=== PATIENT | female | born 1930 | race Caucasian/White ===

== ENCOUNTER 2018-05-25 01:44 | Observation (INO) ==
[2018-05-25 02:31] LABS: Basophils # 0.1 K/mm3 (0-0.2); Basophils % 0.7 % (0.1-2.0); Eosinophils # 0.2 K/mm3 (0.0-0.4); Eosinophils % 2.2 % (0.1-12.0); Hematocrit 30.4 % (37.0-47.0); Hemoglobin 8.8 g/dL (12.2-16.2); Lymphocytes # 2.2 K/mm3 (0.7-4.5); Lymphocytes % 31.5 K/mm3 (10-50); Mean Corpuscular HGB Conc 28.9 g/dL (31.8-35.4); Mean Corpuscular Hemoglobin 19.7 pg (27.0-31.2); Mean Corpuscular Volume 68.1 fl (81-99); Mean Platelet Volume 6.8 fl (7.4-10.4); Monocytes # 0.6 K/mm3 (0.1-1.0); Monocytes % 8.7 % (1.7-9.3); Neutrophils # 3.9 K/mm3 (1.8-7.8); Neutrophils % 56.8 % (37.0-80.0); Platelet Count 322 K/mm3 (142-424); Red Blood Count 4.46 M/mm3 (4.20-5.40); Red Cell Distribution Width 17.7 % (11.5-17.5); White Blood Count 6.9 K/mm3 (4.8-10.8)
[2018-05-25 02:58] LABS: Alanine Aminotransferase 16 U/L (12-78); Albumin Level 3.1 gm/dL (3.4-5.0); Albumin/Globulin Ratio 0.9 (1.1-1.8); Alkaline Phosphatase 97 U/L (46-116); Anion Gap 9.9 mEq/L (5-15); Aspartate Amino Transferase 10 U/L (15-37); Bilirubin,Total 0.2 mg/dL (0.2-1.0); Blood Urea Nitrogen 26 mg/dL (7-18); Calcium 9.1 mg/dL (8.5-10.1); Carbon Dioxide 31 mmol/L (21.0-32.0); Chloride 105 mmol/L (98-107); Creatine Kinase 38 U/L (26-192); Globulin 3.6 gm/dl (1.3-3.2); Glucose 114 mg/dL (74-106); Potassium 2.9 mmoL/L (3.5-5.1); Sodium 143 mmol/L (136-145); Total Protein,Serum 6.7 gm/dL (6.4-8.2)
--- NOTE | 2018-05-25 03:58 | Emergency Department Note ---
ED Disposition Clinical Impression: Hypokalemia Chest pain Qualifiers: Chest pain type: precordial pain Qualified Code(s): R07.2 - Precordial pain Anemia Qualifiers: Anemia type: unspecified type Qualified Code(s): D64.9 - Anemia, unspecified Disposition: Admitted as Observation Condition on Discharge: Good Referrals: Brandan Mayorga MD [Primary Care Provider] - - Critical Care Critical Care Time: No Attestation: On 05/25/18, the high probability of a clinically significant, sudden or life threatening deterioration of the following system(s) required my full and direct attention, intervention and personal management. The time I documented below is in addition to time spent performing reported procedures but includes the following listed in this critical care notation. Medical Decision Making - Medical Records Medical records reviewed: Yes: I reviewed the patient's medical records. - Armando Inquiry Pt receiving controlled substance: No Vital Signs: 05/25/18 01:45 Temperature 97.8 F Temperature Source Oral Pulse Rate [Right Radial] 74 Respiratory Rate 20 Blood Pressure [Right Arm] 167/74 Blood Pressure Mean [Right Arm] 105 02 Sat by Pulse Oximetry 96 - Lab Data Lab results reviewed: Yes: I reviewed the patient's lab results. Lab Results 05/25/18 01:55: WBC 6.9, RBC 4.46, Hgb 8.8 L, Hct 30.4 L, MCV 68.1 L, MCH 19.7 L , MCHC 28.9 L, RDW 17.7 H, Plt Count 322, MPV 6.8 L, Neut % (Auto) 56.8, Lymph % (Auto) 31.5, [place] % (Auto) 8.7, Eos % (Auto) 2.2, Baso % (Auto) 0.7, Neut # ( Auto) 3.9, Lymph # (Auto) 2.2, [place] # (Auto) 0.6, Eos # (Auto) 0.2, Baso # (Auto ) 0.1 05/25/18 01:55: Sodium 143, Potassium 2.9 L*, Chloride 105, Carbon Dioxide 31, Anion Gap 9.9, BUN 26 H, Creatinine 0.67, Estimated Creat Clear 29, Estimated GFR 83, Est GFR ( Amer) 101, Glucose 114 H, Calcium 9.1, Total Bilirubin 0.2, AST 10 L, ALT 16, Alkaline Phosphatase 97, Total Creatine Kinase 38, CK-MB (CK-2) 0.9, CK-MB (CK-2) Rel Index 2.4, Troponin I < 0.02, Total Protein 6.7, Albumin 3.1 L, Globulin 3.6 H, Albumin/Globulin Ratio 0.9 L 05/25/18 01:55: Lactate 1.3 Result diagrams: 05/25/18 01:55 05/25/18 01:55 Orders (Tests/Meds): ORDERS Category Date Time Status XR chest 2V Stat Exams 05/25/18 01:49 Taken Blood Culture Stat Micro 05/25/18 01:51 Received - Radiology Data #1 Image(s): Chest Image Reviewed: Yes I reviewed the patient's radiology image Preliminary Findings: Abnormal (copd) - ECG Data Tracing #1 Normal Sinus Rhythm: Yes Ischemic changes: non-specific ST-T wave changes - Physician Consults Physician Consulted: sound Reason -: Admission Chest Pain HPI - General Chief Complaint: Chest Pain Stated Complaint: chest pain Time Seen by Provider: 05/25/18 02:00 Mode of Arrival: Family Vehicle Source of Information: Patient, Spouse, Medical Record Limitations: No Limitations Description of Symptoms (Recalled from ER Triage Doc. by RN): pt states that while playing on her cell phone she started having sudden sharp chest pains that radiate across her chest. pt states she has been coughing up sputum due to some sinus drainage she has had lately. - History of Present Illness HPI narrative: pt with acute onset at 0100 of ant chest tightness with no syncope - no prev episodes and she has no fever or rash and no trauma MD complaint: chest pain indicative of cardiac Onset (ago): hour(s) Duration: now resolved Activity at onset: during rest Pain location: left chest Severity: moderate Pain radiation: none Associated symptoms: nausea Risk Factors for CAD: Family Hx of CAD, Smoking Treatments prior to or on arrival for Cardiac Chest Pain: aspirin - DANNIE Score Non-Stemi Age of patient: 65 yrs or more Number of risk factors for CAD: Presence of 3 or more Prior coronary artery stenosis(seen in coronary angiography): Less than 50% ST-Segment deviation on ECG (more than 1 min): Absent Prior aspirin intake: No ASA in the last 7 days Severe anginal chest pain: No or one episode in last 24 hours Elevated cardiac markers(CK-MB or troponin): Absent Non-Stemi Risk Score: 2 - Related Data On Oral Contraceptives: No Home Medications Medication Instructions Recorded Confirmed cholecalciferol (vitamin D3) 1,000 1,000 unit PO ONCE 02/04/18 05/25/18 unit capsule lisinopril 10 mg tablet 10 mg PO DAILY 90 Days #90 02/04/18 05/25/18 lisinopril 20 1 tab PO DAILY 90 Days #90 02/04/18 05/25/18 mg-hydrochlorothiazide 12.5 mg tablet pravastatin 40 mg tablet 40 mg PO HS 90 Days #90 02/04/18 05/25/18 vitamins A,C,F-zefj-ayxcwv 14,320 1 cap PO DAILY 03/02/18 05/25/18 unit-226 mg-200 unit capsule Alendronate Sodium 70 mg PO WEEKLY 03/23/18 05/25/18 Aspirin [Aspirin 325mg Tab] 325 mg PO DAILY 03/23/18 05/25/18 ondansetron 4 mg disintegrating 4 mg PO TID PRN 03/26/18 05/25/18 tablet Gabapentin [Gabapentin 300mg Cap] 300 mg PO BID 05/25/18 05/25/18 Allergies Allergy/AdvReac Type Severity Reaction Status Date / Time Penicillins Allergy Intermediate I-RASH Verified 05/25/18 01:48 [facility] History I have reviewed the patient's past medical history: Yes Medical History: Reports:: Cancer (SKIN CANCER), Chronic Obstructive Pulmonary Disease (COPD), Hypertension, Peripheral Artery Disease Denies:: Asthma, Diabetes Mellitus Type 1, Diabetes Mellitus Type 2, MRSA Other Surgeries: Yes: Cancer Surgery, Hysterectomy-Total Amputation: No Fractures: No - Social History Smoking Status: Current every day smoker Tobacco Type: cigarettes # Packs/Day (cigarettes): 1 Alcohol Intake: never Alcohol Intake Frequency:: other Substance Use Type: denies use - Psychiatric History Expresses thoughts of harming self/others: None Suicide Plan Description: No Plan Family Hx:: Cancer, Hypertension ROS Obtained: Yes All systems reviewed & no additional complaints - Constitutional Constitutional: Denies fever(s) - Eyes Eyes: Denies change in vision - ENT Ears, Nose, Mouth, and Throat: Denies sore throat - Cardiovascular Cardiovascular: Reports chest pain - Respiratory Respiratory: Yes dyspnea - Gastrointestinal Gastrointestingal: Reports: abdominal pain - Genitourinary Female Genitourinary: Denies hematuria - Musculoskeletal Musculoskeletal: Reports joint pain, Denies joint swelling - Integumentary/Breasts Skin/Breast: Denies rash - Neurologic Neurologic: Denies seizure-like activity Physical Exam - General General appearance: alert - Head Head exam: normocephalic - Eye Eye exam: Present: PERRL, EOMI - ENT ENT exam: Present: mucous membranes dry - Neck Neck exam: Present: trachea midline - Respiratory Respiratory exam: Absent: respiratory distress - Cardiovascular Cardiovascular exam: Present: regular rate, systolic murmur, +S4 - Abdominal Exam Abdominal exam: Present: soft - Extremities Exam Extremities exam: Present: pedal edema. Absent: calf tenderness - Neurological Exam Neurological exam: Present: alert, oriented X3, CN II-XII intact - Psychiatric Psychiatric exam: Present: normal affect - Skin Skin exam: Absent: rash
[2018-05-25 06:20] LABS: Chol/HDL Ratio 2.5 (1-3.5)
--- NOTE | 2018-05-25 07:20 | Pharmacy Consult Notes ---
[facility] Pharmacy VTE Monitoring - Patient Demographics Admission date: 05/24/18 Report Date: 05/25/18 Time: 07:20 Allergies/Adverse Reactions: Patient Allergies Penicillins Allergy (Intermediate, Verified 05/25/18 01:48) I-RASH Height: 1.65 m Weight: 43.687 kg Patient Problems: Current Active Problems Chest pain (Acute) Anemia (Acute) Hypokalemia (Acute) - VTE Risk Labs: VTE Related Lab Results Hgb 8.8 g/dL (12.2-16.2) L 05/25/18 01:55 Hct 30.4 % (37.0-47.0) L 05/25/18 01:55 Plt Count 322 K/mm3 (142-424) 05/25/18 01:55 BUN 26 mg/dL (7-18) H 05/25/18 01:55 Creatinine 0.67 mg/dL (0.55-1.02) 05/25/18 01:55 Estimated Creat Clear 29 mL/min (0-300) 05/25/18 01:55 Was VTE Risk Assessment Performed: Yes VTE Score: 4 VTE Risk Level: Low Risk - Prophylaxis VTE Prophylaxis Ordered?: Yes Types of VTE Prophylaxis: TEDS Knee High Location of Applied Device: Bilateral Lower Extremeties - VTE Diagnosis Confirmed Treatment or plan recommended: Continue Current Treatment
--- NOTE | 2018-05-25 08:23 | Consult Report ---
History of Present Illness Consult date: 05/25/18 Requesting physician: Brandan Mayorga Consult reason: chest pain Chief complaint: chest pain Additional Medical History:: 1. Tobacco use, started age 22 A. COPD 2. Hypertension 3. History of hepatitis 4. Recent left humeral fracture after fall 5. Hyperlipidemia 6. Peripheral arterial disease with abnormal MOLLY, 02/2018 A. MOLLY, 02/2018, FINDINGS Rest study only performed today No prior studies available for comparison. Blood pressures reported are in millimeters mercury. RIGHT LEG MOLLY = .7. RIGHT LEG TBI=.4 Brachial BP: 110 Thigh BP: 123 Calf BP: 125 Ankle PT: 81 Ankle DP : 113 Digit =42 LEFT LEG MOLLY = 1.0 LEFT LEG TBI= .5 Brachial BPD: 111 Thigh BP: 124 Calf BP: 108 Ankle PT:111 Ankle DP: 115 Digit = 59 Pulses and waveforms: Diminished pulses with normal waveforms IMPRESSION: 1. There is a low right MOLLY is 0.7 suggesting mild atherosclerotic disease. 2. There are low TBIs on both sides suggesting small vessel disease History of present illness: 88-year-old white female with history of hypertension, tobacco use and COPD presented to the emergency department for chest pain. Patient relates sitting in her recliner getting ready to go to sleep when she developed sudden anterior chest pain radiating from left to right with heaviness in the chest. Symptoms did not resolve quickly the patient did take an aspirin and called her son for help. She was transported to the emergency department for further evaluation. Symptoms had significantly improved by the time she got to the emergency department. In retrospect she does note some jaw discomfort with the chest pain. She was not given any additional antianginals in the ER for chest pain resolved and has not recurred. Patient was kept overnight for further evaluation. Troponins have returned normal overnight 2. EKG is sinus without acute ST segment changes. Patient recently was seen in our office for evaluation of abnormal ABIs with plan for lower extremity arteriogram. However in the interim the patient fell and broke her arm and plans admits bone for that. She actually was seeking a second opinion with Dr. Jeffery in [place] but had not made that appointment yet. Cardiology consulted for evaluation and recommendations. Patient does relate some recent difficulty in swallowing foods with the feeling that food will get home up in her chest. She would not have to vomit the food up. She has learned to position herself to make swallowing easier. 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), Chronic Obstructive Pulmonary Disease (COPD), Hypertension, Peripheral Artery Disease Denies:: Asthma, Diabetes Mellitus Type 1, Diabetes Mellitus Type 2, MRSA Other Surgeries: Yes: Cancer Surgery, Colonoscopy, EGD, Hysterectomy-Total, Skin Cancer Excision Amputation: No Fractures: No - *Social History Smoking Status: Current every day smoker Tobacco Type: cigarettes # Packs/Day (cigarettes): 1 #Yrs smoked (if former smoker): 60 Alcohol Intake: never Alcohol Intake Frequency:: other Substance Use Type: denies use Occupational Status: retired Housing: house Household Members: none - Psychiatric History Expresses thoughts of harming self/others: None Suicide Plan Description: No Plan *Family Hx:: Cancer, Hypertension Meds Home Medications Medication Instructions Recorded Confirmed Type cholecalciferol (vitamin D3) 1,000 1,000 unit PO DAILY 02/04/18 05/25/18 History unit capsule lisinopril 10 mg tablet 10 mg PO DAILY 90 Days #90 02/04/18 05/25/18 History lisinopril 20 1 tab PO DAILY 90 Days #90 02/04/18 05/25/18 History mg-hydrochlorothiazide 12.5 mg tablet pravastatin 40 mg tablet 40 mg PO HS 90 Days #90 02/04/18 05/25/18 History vitamins A,C,C-hlsd-ofpboh 14,320 1 cap PO DAILY 03/02/18 05/25/18 History unit-226 mg-200 unit capsule Alendronate Sodium 70 mg PO WEEKLY 03/23/18 05/25/18 History Aspirin [Aspirin 325mg Tab] 325 mg PO DAILY 03/23/18 05/25/18 History ondansetron 4 mg disintegrating 4 mg PO TID PRN 03/26/18 05/25/18 History tablet Allergies Allergy/AdvReac Type Severity Reaction Status Date / Time Penicillins Allergy Intermediate I-RASH Verified 05/25/18 01:48 Review of Systems - *Cardiovascular Reports chest pain, Reports shortness of breath with activity - *Respiratory Reports shortness of breath with activity - *Gastrointestinal Denies abdominal pain, Denies black, tarry stools, Denies nausea - *Genitourinary Denies difficulty urinating - *Musculoskeletal Reports joint pain - *Neurologic Denies seizure-like activity Exam Vital signs and Labs for Last 24 Hours: Temp Pulse Resp BP Pulse Ox 97.0 F L 66 20 151/56 100 05/25/18 07:51 05/25/18 07:51 05/25/18 07:51 05/25/18 07:51 05/25/18 07:51 Laboratory Results - last 24 hr 05/25/18 01:55: WBC 6.9, RBC 4.46, Hgb 8.8 L, Hct 30.4 L, MCV 68.1 L, MCH 19.7 L , MCHC 28.9 L, RDW 17.7 H, Plt Count 322, MPV 6.8 L, Neut % (Auto) 56.8, Lymph % (Auto) 31.5, [place] % (Auto) 8.7, Eos % (Auto) 2.2, Baso % (Auto) 0.7, Neut # ( Auto) 3.9, Lymph # (Auto) 2.2, [place] # (Auto) 0.6, Eos # (Auto) 0.2, Baso # (Auto ) 0.1 05/25/18 01:55: Sodium 143, Potassium 2.9 L*, Chloride 105, Carbon Dioxide 31, Anion Gap 9.9, BUN 26 H, Creatinine 0.67, Estimated Creat Clear 29, Estimated GFR 83, Est GFR ( Amer) 101, Glucose 114 H, Calcium 9.1, Total Bilirubin 0.2, AST 10 L, ALT 16, Alkaline Phosphatase 97, Total Creatine Kinase 38, CK-MB (CK-2) 0.9, CK-MB (CK-2) Rel Index 2.4, Troponin I < 0.02, Total Protein 6.7, Albumin 3.1 L, Globulin 3.6 H, Albumin/Globulin Ratio 0.9 L 05/25/18 01:55: Lactate 1.3 05/25/18 06:00: Troponin I < 0.02 05/25/18 06:00: Magnesium 1.7, Triglycerides 38, Cholesterol 158, LDL Cholesterol 88, VLDL Cholesterol 8, HDL Cholesterol 62, Cholesterol/HDL Ratio 2.5 I & O for Last 24 hours: Intake & Output 05/22/18 05/23/18 05/24/18 05/25/18 11:59 11:59 11:59 11:59 Intake Total 0 / 0 Output Total 200 / 200 Balance -200 / -200 Weight 96 lb 5 oz - *Routine Neck Exam Absent: JVD, carotid bruit - *Routine Respiratory Exam Present: decreased breath sounds, CTA bilaterally. Absent: rhonchi, wheezes - *Routine Cardiovascular Exam Present: RRR, murmur. Absent: gallop, rubs - *Routine Abdominal Exam Present: soft. Absent: tenderness - *Routine Extremities Exam Present: edema - *Routine Neurological Exam Present: alert, oriented X3, moving all extremities Assessment and Plan (1) Chest pain Current visit: Yes Status: Acute Qualifiers: Chest pain type: precordial pain Qualified Code(s): R07.2 - Precordial pain Category: Medical Code(s): R07.9 - Chest pain, unspecified (2) Anemia Current visit: Yes Status: Acute Qualifiers: Anemia type: unspecified type Qualified Code(s): D64.9 - Anemia, unspecified Category: Medical Code(s): D64.9 - Anemia, unspecified (3) Hypokalemia Current visit: Yes Status: Acute Category: Medical Code(s): E87.6 - Hypokalemia (4) Hypertension Current visit: Yes Status: Acute Category: Medical Code(s): I10 - Essential (primary) hypertension (5) COPD (chronic obstructive pulmonary disease) Current visit: Yes Status: Acute Category: Medical Code(s): J44.9 - Chronic obstructive pulmonary disease, unspecified (6) Tobacco use Current visit: Yes Status: Acute Category: Social Hx Code(s): Z72.0 - Tobacco use - Assessment and plan all Dx Assessment and Plan for all problems:: 1. Chest pain in a patient with cardiac risk factors including tobacco use, hypertension and hyperlipidemia with a DANNIE score of 2. With patient's marked microcytic anemia would recommend antianginal medications (bisoprolol) and Lexiscan Myoview to assess for myocardial ischemia. Patient denies any diarrhea or melena. Preliminary echocardiogram shows preserved left ventricular ejection fraction with at least moderate mitral regurgitation and severe TR. 2. Regarding microcytic anemia, will obtain iron and TIBC studies further workup and treatment per Dr. Mayorga. 3. Hypokalemia, supplementation in progress. 4. Further recommendations to follow pending above results.
--- NOTE | 2018-05-25 09:06 | History & Physical Report ---
*Admission Date: 05/24/18 <JaymeNichol 05/25/18 09:25> *Chief complaint: Chest pain <Nichol Delacruz 05/25/18 09:25> *History of present illness: Ms. Delarosa is an 88-year-old female with a history of hypertension and tobacco use disorder who presented to [facility] emergency room after experiencing anterior, sharp chest pain. Her breathing was as usual. She rates her chest pain at 10 out of 10. She denies any nausea. Chest pain started about 1 AM when she was playing a game on her telephone when she was unable to sleep. When pain did not resolve she called her son who brought her to the emergency room. She did take an aspirin at home. In the emergency room chest pain did improve. Cardiac workup was initiated and she was admitted for further evaluation and treatment with a cardiology consult. This a.m. patient is comfortable and denies shortness of breath. SHe did not sleep during the night due to activities. To note: Patient had a recent humeral fracture. Continues with rehab. He does continue to smoke 1 pack per day. Although patient notes that she has had a lot of stress recently due to her son getting over the past weekend. She has had some difficulty with swallowing with some discomfort as well. <Nichol Delacruz 05/26/18 10:07> [facility] History Medical History: Reports:: Cancer (basal cell removed from right ear lobe and nose), Chronic Obstructive Pulmonary Disease (COPD), Gastroesophageal Reflux Disease(GERD), Hypertension, Peripheral Artery Disease Denies:: Asthma, Diabetes Mellitus Type 1, Diabetes Mellitus Type 2, Gastrointestinal Bleed, MRSA <Nichol Delacruz 05/25/18 09:25> Comment: Tobacco use disorder; left humerus fracture <Nichol Delacruz 09:25> Other Surgeries: Yes: Cancer Surgery, Colonoscopy, EGD, Hysterectomy-Total, Skin Cancer Excision <Nichol Delacruz 05/25/18 09:25> Amputation: No <Nichol Delacruz 05/25/18 09:25> Fractures: No <Nichol Delacruz 05/25/18 09:25> Comment: Recent dental implants <Nichol Delacruz 05/25/18 09:25> - *Social History Smoking Status: Current every day smoker <Nichol Delacruz 05/25/18 09:25> Tobacco Type: cigarettes <Nichol Delacruz 05/25/18 09:25> # Packs/Day (cigarettes): 1 <JaymeNichol 05/25/18 09:25> #Yrs smoked (if former smoker): 60 <JaymeNichol 05/25/18 09:25> Alcohol Intake: never <JaymeNichol 05/25/18 09:25> Alcohol Intake Frequency:: other <JaymeNichol 05/25/18 09:25> Substance Use Type: denies use <JaymeNichol 05/25/18 09:25> Occupational Status: retired <JaymeNichol 05/25/18 09:25> Housing: house <JaymeNichol 05/25/18 09:25> Household Members: none <DelacruzNichol 05/25/18 09:25> - Psychiatric History Expresses thoughts of harming self/others: None <DelacruzNichol Heri 05/25/18 09: 25> Suicide Plan Description: No Plan <JaymeNichol 05/25/18 09:25> *Family Hx:: Cancer, Coronary Artery Disease, Hypertension <DelacruzNichol 09:25> Review of Systems - Constitutional Reports weight loss, Denies body ache(s), Denies lack of energy <Delacruz Nichol 05/25/18 09:25> - ENT Denies dizziness, Denies ear pain, Denies sore throat <Delacruz,Nichol 09:25> - *Cardiovascular Reports chest pain, Reports chest pain at rest, Reports shortness of breath, Reports foot swelling <DelacruzNichol 05/25/18 09:25> - *Respiratory Reports cough (Minimal and is nonproductive), Denies chest congestion <Delacruz ,Nichol 05/25/18 09:25> - *Gastrointestinal Reports constipation, Reports difficulty swallowing, Reports heartburn, Denies abdominal pain, Denies vomiting blood, Denies black, tarry stools, Denies nausea , Denies vomiting <JaymeNichol 05/25/18 09:25> - *Genitourinary Denies difficulty urinating <Nichol eDlacruz - 05/25/18 09:25> - *Musculoskeletal Reports back pain, Denies joint pain <Nichol Delacruz - 05/25/18 09:25> Comments: Recent fall resulting in fracture of her left humerus. She does not know why she fell. <Nichol Delacruz - 05/25/18 09:25> - *Neurologic Denies dizziness, Denies seizure-like activity <Nichol Delacruz - 05/25/18 09:25 > Meds Home Medications Medication Instructions Recorded Confirmed Type cholecalciferol (vitamin D3) 1,000 1,000 unit PO DAILY 02/04/18 05/25/18 History unit capsule lisinopril 10 mg tablet 10 mg PO DAILY 90 Days #90 02/04/18 05/25/18 History lisinopril 20 1 tab PO DAILY 90 Days #90 02/04/18 05/25/18 History mg-hydrochlorothiazide 12.5 mg tablet pravastatin 40 mg tablet 40 mg PO HS 90 Days #90 02/04/18 05/25/18 History vitamins A,C,P-ksgq-dlckok 14,320 1 cap PO DAILY 03/02/18 05/25/18 History unit-226 mg-200 unit capsule Alendronate Sodium 70 mg PO WEEKLY 03/23/18 05/25/18 History Aspirin [Aspirin 325mg Tab] 325 mg PO DAILY 03/23/18 05/25/18 History ondansetron 4 mg disintegrating 4 mg PO TID PRN 03/26/18 05/25/18 History tablet <Nichol Delacruz - 05/25/18 09:25> Allergies Allergy/AdvReac Type Severity Reaction Status Date / Time Penicillins Allergy Intermediate I-RASH Verified 05/25/18 01:48 <Nichol Delacruz - 05/25/18 09:25> Exam Vital signs and Labs for Last 24 Hours: Temp Pulse Resp BP Pulse Ox 97.7 F 47 L 20 106/44 95 05/25/18 11:32 05/25/18 11:32 05/25/18 11:32 05/25/18 11:32 05/25/18 11:32 Laboratory Results - last 24 hr 05/25/18 01:55: WBC 6.9, RBC 4.46, Hgb 8.8 L, Hct 30.4 L, MCV 68.1 L, MCH 19.7 L , MCHC 28.9 L, RDW 17.7 H, Plt Count 322, MPV 6.8 L, Neut % (Auto) 56.8, Lymph % (Auto) 31.5, [place] % (Auto) 8.7, Eos % (Auto) 2.2, Baso % (Auto) 0.7, Neut # ( Auto) 3.9, Lymph # (Auto) 2.2, [place] # (Auto) 0.6, Eos # (Auto) 0.2, Baso # (Auto ) 0.1 05/25/18 01:55: Sodium 143, Potassium 2.9 L*, Chloride 105, Carbon Dioxide 31, Anion Gap 9.9, BUN 26 H, Creatinine 0.67, Estimated Creat Clear 29, Estimated GFR 83, Est GFR ( Amer) 101, Glucose 114 H, Calcium 9.1, Total Bilirubin 0.2, AST 10 L, ALT 16, Alkaline Phosphatase 97, Total Creatine Kinase 38, CK-MB (CK-2) 0.9, CK-MB (CK-2) Rel Index 2.4, Troponin I < 0.02, Total Protein 6.7, Albumin 3.1 L, Globulin 3.6 H, Albumin/Globulin Ratio 0.9 L 05/25/18 01:55: Lactate 1.3 05/25/18 06:00: Troponin I < 0.02 05/25/18 06:00: Magnesium 1.7, Triglycerides 38, Cholesterol 158, LDL Cholesterol 88, VLDL Cholesterol 8, HDL Cholesterol 62, Cholesterol/HDL Ratio 2.5 05/25/18 08:08: Troponin I < 0.02 05/25/18 11:06: Troponin I < 0.02 <Brandan Mayorga - 05/25/18 15:36> Temp Pulse Resp BP Pulse Ox 97.0 F L 66 20 151/56 2 L 05/25/18 07:51 05/25/18 07:51 05/25/18 07:51 05/25/18 07:51 05/25/18 08:00 Laboratory Results - last 24 hr 05/25/18 01:55: WBC 6.9, RBC 4.46, Hgb 8.8 L, Hct 30.4 L, MCV 68.1 L, MCH 19.7 L , MCHC 28.9 L, RDW 17.7 H, Plt Count 322, MPV 6.8 L, Neut % (Auto) 56.8, Lymph % (Auto) 31.5, [place] % (Auto) 8.7, Eos % (Auto) 2.2, Baso % (Auto) 0.7, Neut # ( Auto) 3.9, Lymph # (Auto) 2.2, [place] # (Auto) 0.6, Eos # (Auto) 0.2, Baso # (Auto ) 0.1 05/25/18 01:55: Sodium 143, Potassium 2.9 L*, Chloride 105, Carbon Dioxide 31, Anion Gap 9.9, BUN 26 H, Creatinine 0.67, Estimated Creat Clear 29, Estimated GFR 83, Est GFR ( Amer) 101, Glucose 114 H, Calcium 9.1, Total Bilirubin 0.2, AST 10 L, ALT 16, Alkaline Phosphatase 97, Total Creatine Kinase 38, CK-MB (CK-2) 0.9, CK-MB (CK-2) Rel Index 2.4, Troponin I < 0.02, Total Protein 6.7, Albumin 3.1 L, Globulin 3.6 H, Albumin/Globulin Ratio 0.9 L 05/25/18 01:55: Lactate 1.3 05/25/18 06:00: Troponin I < 0.02 05/25/18 06:00: Magnesium 1.7, Triglycerides 38, Cholesterol 158, LDL Cholesterol 88, VLDL Cholesterol 8, HDL Cholesterol 62, Cholesterol/HDL Ratio 2.5 05/25/18 08:08: Troponin I < 0.02 <Nichol Delacruz - 05/25/18 09:25> I & O for Last 24 hours: Intake & Output 05/23/18 05/24/18 05/25/18 05/26/18 11:59 11:59 11:59 11:59 Intake Total 0 / 0 240 / 240 Output Total 200 / 200 Balance -200 / -200 240 / 240 Weight 101 lb 8 oz <Brandan Mayorga - 05/25/18 15:36> Intake & Output 05/22/18 05/23/18 05/24/18 05/25/18 11:59 11:59 11:59 11:59 Intake Total 0 / 0 Output Total 200 / 200 Balance -200 / -200 Weight 96 lb 5 oz <Nichol Delacruz 05/25/18 09:25> Radiology Reports for the Last 24 Hours: 05/25/2018 chest x-ray IMPRESSION: 1. COPD/emphysema with chronic fibrotic changes. 2. Comminuted mildly displaced left humeral neck fracture. 3. No acute finding. <Nichol Delacruz 05/25/18 09:25> - Constitutional no acute distress, thin <Nichol Delacruz 05/25/18 09:25> Comments: Appears comfortable sitting up in bed watching television. <[facility] 05/25/18 09:25> - *Routine HEENT Exam Head: Present: normocephalic, atraumatic <Debi Delacruzhy 05/25/18 09:25> Eye: Present: PERRL. Absent: conjunctival icterus, scleral injection <Nichol Delacruz 05/25/18 09:25> ENT: Present: mucous membranes moist, oropharynx clear <[facility] 09:25> - *Routine Neck Exam Present: supple. Absent: carotid bruit, lymphadenopathy, thyromegaly <Debi Delacruzhy 05/25/18 09:25> - *Routine Respiratory Exam Comments: Fibrotic crackles bilaterally posteriorly. Decreased breath sounds on the left <Debi Delacruzhy 05/25/18 09:25> - *Routine Cardiovascular Exam Present: RRR <Debi Delacruzhy 05/25/18 09:25> Comments: Monitor showing sinus rhythm <Debi Delacruzhy 05/25/18 09:25> - *Routine Abdominal Exam Present: soft, normoactive bowel sounds. Absent: tenderness, distended, guarding, firm <Debi Delacruzhy 05/25/18 09:25> - *Routine Extremities Exam Present: edema. Absent: calf tenderness <Nichol Delacruz 05/25/18 09:25> Comments: Edema of bilateral feet. <Debi Delacruzhy 05/25/18 09:25> - *Routine Skin Exam Present: dry [facility] 05/25/18 09:25> - *Routine Neurological Exam Present: alert, oriented X3 <Debi Delacruzhy 05/25/18 09:25> Assessment and Plan (1) Chest pain Current visit: Yes Status: Acute Qualifiers: Chest pain type: precordial pain Qualified Code(s): R07.2 - Precordial pain Category: Medical Code(s): R07.9 - Chest pain, unspecified (2) Anemia Current visit: Yes Status: Acute Qualifiers: Anemia type: unspecified type Qualified Code(s): D64.9 - Anemia, unspecified Category: Medical Code(s): D64.9 - Anemia, unspecified (3) Hypokalemia Current visit: Yes Status: Acute Category: Medical Code(s): E87.6 - Hypokalemia (4) Hypertension Current visit: Yes Status: Acute Category: Medical Code(s): I10 - Essential (primary) hypertension (5) COPD (chronic obstructive pulmonary disease) Current visit: Yes Status: Acute Category: Medical Code(s): J44.9 - Chronic obstructive pulmonary disease, unspecified (6) Tobacco use Current visit: Yes Status: Acute Category: Social Hx Code(s): Z72.0 - Tobacco use <TierraBrandan - 05/25/18 15:36> (1) Chest pain Current visit: Yes Status: Acute Qualifiers: Chest pain type: precordial pain Qualified Code(s): R07.2 - Precordial pain Category: Medical Code(s): R07.9 - Chest pain, unspecified (2) Anemia Current visit: Yes Status: Acute Qualifiers: Anemia type: unspecified type Qualified Code(s): D64.9 - Anemia, unspecified Category: Medical Code(s): D64.9 - Anemia, unspecified (3) Hypokalemia Current visit: Yes Status: Acute Category: Medical Code(s): E87.6 - Hypokalemia (4) Hypertension Current visit: Yes Status: Acute Category: Medical Code(s): I10 - Essential (primary) hypertension (5) COPD (chronic obstructive pulmonary disease) Current visit: Yes Status: Acute Category: Medical Code(s): J44.9 - Chronic obstructive pulmonary disease, unspecified (6) Tobacco use Current visit: Yes Status: Acute Category: Social Hx Code(s): Z72.0 - Tobacco use <Nichol Delacruz - 05/26/18 10:07> - Assessment and plan all Dx Assessment and Plan for all problems:: Saw patient, agree with above note. <Brandan Mayorga - 05/25/18 15:37> Nuclear stress test; upper GI; scheduled potassium. Patient has been seen by cardiology. Echocardiogram has been completed and results are pending <Nichol Delacruz - 05/25/18 09:25>
--- NOTE | 2018-05-25 19:56 | Cardiology Report ---
PROCEDURE: 2-D M-mode and color Doppler study INDICATIONS FOR THE TEST: Chest pain + COPD+ Heart Murmur Tobacco Smoking+ Palpitations Fatigue Syncope Edema Hypertension+Diabetes Mellitus Rheumatic Fever SOB [place] Obesity Hyperlipidemia Family History HD Additional History PAD PATIENT INFORMATION HEIGHT: 64 WEIGHT:102 GENDER: Female B/P:167/74 2-D/M-MODE INTERPRETATION: 2-D MEASUREMENTS OBSERVED VALUES IN CMS Right Ventricular Dimension (RVDd) 2.4 Interventricular Septum (Thickness)(IVsd) 1.6 Left Ventricular Internal Dimensions(LVIDd) 3.3 Left Ventricular Posterior Wall (Thickness)(LVPWd) 1.3 Aortic Root 3.2 Aortic Cusp Separation 1.8 Left Atrial Dimensions (LAD) 3.5 2D 1. Left atrium is mildly enlarged, left ventricle is normal size, mild concentric left ventricular hypertrophy, visually estimated ejection fraction 55% with no obvious regional wall motion abnormality. 2. The right atrium is mildly enlarged, right ventricle is normal size and contractility. 3. The aortic valve is thickened and calcified leaflet continue to display good mobility. 4. The mitral valve leaflets are minimally thickened, there is mitral annular calcification present, there appears to be mild prolapse of the posterior mitral leaflet. 5. The tricuspid valve is minimally thickened. 6. The pulmonic valve is poorly visualized. 7. There is trivial pericardial effusion noted. DOPPLER INTERROGATION: Doppler interrogation of the aortic, mitral and tricuspid valvular presence of mild aortic, moderate mitral and moderate tricuspid regurgitation, calculated right ventricular systolic pressure is 62 mmHg consistent with moderate pulmonary hypertension. Grade 1 diastolic dysfunction seen with tissue Doppler evidence of raised left atrial pressure. CONCLUSION: 1. Mildly enlarged left atrium, normal left ventricular size, mild concentric left ventricular hypertrophy, visually estimated ejection fraction 55% with no obvious regional wall motion abnormality, grade 1 diastolic dysfunction seen with tissue Doppler evidence of raised left atrial pressure. 2. Mildly aortic, moderate mitral and tricuspid regurgitation, as described above. Calculated right ventricular systolic pressure is 62 mmHg consistent with moderate pulmonary hypertension. 3. No significant Pericardial effusion noted.
[2018-05-25 20:39] LABS: Creatine Kinase 44 U/L (26-192)
[2018-05-26 06:26] LABS: Basophils % 0.8 % (0.1-2.0); Eosinophils # 0.1 K/mm3 (0.0-0.4); Eosinophils % 1.7 % (0.1-12.0); Hematocrit 28.9 % (37.0-47.0); Hemoglobin 8.3 g/dL (12.2-16.2); Lymphocytes # 1.3 K/mm3 (0.7-4.5); Lymphocytes % 25.2 K/mm3 (10-50); Mean Corpuscular HGB Conc 28.6 g/dL (31.8-35.4); Mean Platelet Volume 7.2 fl (7.4-10.4); Monocytes # 0.4 K/mm3 (0.1-1.0); Monocytes % 7.7 % (1.7-9.3); Neutrophils # 3.3 K/mm3 (1.8-7.8); Neutrophils % 64.6 % (37.0-80.0); Platelet Count 261 K/mm3 (142-424); Red Blood Count 4.13 M/mm3 (4.20-5.40); Red Cell Distribution Width 17.7 % (11.5-17.5); White Blood Count 5.2 K/mm3 (4.8-10.8)
[2018-05-26 06:29] LABS: Anion Gap 7.4 mEq/L (5-15); Calcium 8.4 mg/dL (8.5-10.1); Potassium 4.4 mmoL/L (3.5-5.1)
--- NOTE | 2018-05-26 08:04 | Progress Note ---
Subjective Date: 05/26/18 Time: 08:00 Principal diagnosis: chest pain Interval history: 88 yo WF in bed in [facility]. Episode of chest pain last evening for which EKG and cardiac enzymes performed. EKG showed no acute changes compared with previous and cardiac enzymes returned normal. She was given Morphine with eventual relief. Telemetry reviewed with episodes of marked bradycardia noted but patient was either asleep or asymptomatic. UGI swallow was unremarkable. Exam Vital signs and Labs for Last 24 Hours: Temp Pulse Resp BP Pulse Ox 98.0 F 52 L 20 154/77 100 05/26/18 07:49 05/26/18 07:49 05/26/18 07:49 05/26/18 07:49 05/26/18 07:49 Laboratory Results - last 24 hr 05/25/18 08:08: Troponin I < 0.02 05/25/18 11:06: Troponin I < 0.02 05/25/18 19:55: Total Creatine Kinase 44, CK-MB (CK-2) 1.0, CK-MB (CK-2) Rel Index 2.3, Troponin I < 0.02 05/26/18 05:31: WBC 5.2, RBC 4.13 L, Hgb 8.3 L, Hct 28.9 L, MCV 70.0 L, MCH 20.0 L, MCHC 28.6 L, RDW 17.7 H, Plt Count 261, MPV 7.2 L, Neut % (Auto) 64.6, Lymph % (Auto) 25.2, [place] % (Auto) 7.7, Eos % (Auto) 1.7, Baso % (Auto) 0.8, Neut # (Auto) 3.3, Lymph # (Auto) 1.3, [place] # (Auto) 0.4, Eos # (Auto) 0.1, Baso # (Auto) 0.0 05/26/18 05:31: Sodium 142, Potassium 4.4 D, Chloride 110 H, Carbon Dioxide 29 , Anion Gap 7.4, BUN 21 H, Creatinine 0.62, Estimated Creat Clear 29, Estimated GFR 91, Est GFR ( Amer) 110, Glucose 95, Calcium 8.4 L I & O for Last 24 hours: Intake & Output 08/19/18 08/20/18 08/21/18 08/22/18 11:59 11:59 11:59 11:59 Intake Total 0 / 0 1104 / 1104 Output Total 200 / 200 300 / 300 Balance -200 / -200 804 / 804 Weight 101 lb 8 oz 101 lb 1 oz - *Routine Respiratory Exam Present: CTA bilaterally - *Routine Cardiovascular Exam Present: RRR, murmur Progress Note: A&P (1) Chest pain Status: Acute Current Visit: Yes (2) Anemia Status: Acute Current Visit: Yes (3) Hypokalemia Status: Acute Current Visit: Yes (4) Hypertension Status: Acute Current Visit: Yes (5) COPD (chronic obstructive pulmonary disease) Status: Acute Current Visit: Yes (6) Tobacco use Status: Acute Current Visit: Yes Assessment and Plan for All Diagnoses:: Carlos myoview today. Stop bisoprolol due to bradycardia and risk for fall. Use norvasc for chest pain, BP and possible antispasm treatment of esophagus. Anemia workup ongoing.
--- NOTE | 2018-05-26 08:23 | Progress Note ---
<Nichol Delacruz - Last Filed: 05/26/18 08:19> Internal Medicine - PN: Subj *Date: 05/26/18 *Time: 08:19 Interval history: Patient is feeling good at present. She did have chest pain yesterday evening lasting 7-8 minutes. She describes it as sharp across the entire chest similar to what she had at home on admission. Pain was relieved by morphine she has had no further chest pain. There was no associated shortness of breath or nausea. She is eating as usual and voiding without difficulty Exam Vital signs and Labs for Last 24 Hours: Temp Pulse Resp BP Pulse Ox 98.0 F 52 L 20 154/77 100 05/26/18 07:49 05/26/18 07:49 05/26/18 07:49 05/26/18 07:49 05/26/18 07:49 Laboratory Results - last 24 hr 05/25/18 08:08: Troponin I < 0.02 05/25/18 11:06: Troponin I < 0.02 05/25/18 19:55: Total Creatine Kinase 44, CK-MB (CK-2) 1.0, CK-MB (CK-2) Rel Index 2.3, Troponin I < 0.02 05/26/18 05:31: WBC 5.2, RBC 4.13 L, Hgb 8.3 L, Hct 28.9 L, MCV 70.0 L, MCH 20.0 L, MCHC 28.6 L, RDW 17.7 H, Plt Count 261, MPV 7.2 L, Neut % (Auto) 64.6, Lymph % (Auto) 25.2, [place] % (Auto) 7.7, Eos % (Auto) 1.7, Baso % (Auto) 0.8, Neut # (Auto) 3.3, Lymph # (Auto) 1.3, [place] # (Auto) 0.4, Eos # (Auto) 0.1, Baso # (Auto) 0.0 05/26/18 05:31: Sodium 142, Potassium 4.4 D, Chloride 110 H, Carbon Dioxide 29 , Anion Gap 7.4, BUN 21 H, Creatinine 0.62, Estimated Creat Clear 29, Estimated GFR 91, Est GFR ( Amer) 110, Glucose 95, Calcium 8.4 L I & O for Last 24 hours: Intake & Output 05/23/18 05/24/18 05/25/18 05/26/18 11:59 11:59 11:59 11:59 Intake Total 0 / 0 1104 / 1104 Output Total 200 / 200 300 / 300 Balance -200 / -200 804 / 804 Weight 101 lb 8 oz 101 lb 1 oz - Constitutional no acute distress Comments: Sitting up in bed working with her phone. Appears comfortable - *Routine Respiratory Exam Comments: Diminished breath sounds in the left lower lobe - *Routine Cardiovascular Exam Present: RRR Comments: Monitor showing sinus bradycardia in the 50s - *Routine Abdominal Exam Present: soft, normoactive bowel sounds. Absent: tenderness, distended - *Routine Extremities Exam Present: edema Comments: Trace of foot edema bilaterally Assessment and Plan (1) Chest pain Current visit: Yes Status: Acute Qualifiers: Chest pain type: precordial pain Qualified Code(s): R07.2 - Precordial pain Category: Medical Code(s): R07.9 - Chest pain, unspecified (2) Anemia Current visit: Yes Status: Acute Qualifiers: Anemia type: unspecified type Qualified Code(s): D64.9 - Anemia, unspecified Category: Medical Code(s): D64.9 - Anemia, unspecified (3) Hypokalemia Current visit: Yes Status: Acute Category: Medical Code(s): E87.6 - Hypokalemia (4) Hypertension Current visit: Yes Status: Acute Category: Medical Code(s): I10 - Essential (primary) hypertension (5) COPD (chronic obstructive pulmonary disease) Current visit: Yes Status: Acute Category: Medical Code(s): J44.9 - Chronic obstructive pulmonary disease, unspecified (6) Tobacco use Current visit: Yes Status: Acute Category: Social Hx Code(s): Z72.0 - Tobacco use - Assessment and plan all Dx Assessment and Plan for all problems:: Patient is to have a stress test today. She has been seen by cardiology and beta-brooke has been discontinued. Possibly home later today depending on stress test. Stability CTA of the chest. Anemia studies are pending. <Brandan Mayorga - Last Filed: 05/26/18 09:29> Internal Medicine - PN: Subj *Date: 05/26/18 *Time: 09:28 Exam Vital signs and Labs for Last 24 Hours: Temp Pulse Resp BP Pulse Ox 98.0 F 52 L 20 154/77 100 05/26/18 07:49 05/26/18 07:49 05/26/18 07:49 05/26/18 07:49 05/26/18 07:49 Laboratory Results - last 24 hr 05/25/18 11:06: Troponin I < 0.02 05/25/18 19:55: Total Creatine Kinase 44, CK-MB (CK-2) 1.0, CK-MB (CK-2) Rel Index 2.3, Troponin I < 0.02 05/26/18 05:31: WBC 5.2, RBC 4.13 L, Hgb 8.3 L, Hct 28.9 L, MCV 70.0 L, MCH 20.0 L, MCHC 28.6 L, RDW 17.7 H, Plt Count 261, MPV 7.2 L, Neut % (Auto) 64.6, Lymph % (Auto) 25.2, [place] % (Auto) 7.7, Eos % (Auto) 1.7, Baso % (Auto) 0.8, Neut # (Auto) 3.3, Lymph # (Auto) 1.3, [place] # (Auto) 0.4, Eos # (Auto) 0.1, Baso # (Auto) 0.0 05/26/18 05:31: Sodium 142, Potassium 4.4 D, Chloride 110 H, Carbon Dioxide 29 , Anion Gap 7.4, BUN 21 H, Creatinine 0.62, Estimated Creat Clear 29, Estimated GFR 91, Est GFR ( Amer) 110, Glucose 95, Calcium 8.4 L I & O for Last 24 hours: Intake & Output 05/23/18 05/24/18 05/25/18 05/26/18 11:59 11:59 11:59 11:59 Intake Total 0 / 0 1104 / 1104 Output Total 200 / 200 300 / 300 Balance -200 / -200 804 / 804 Weight 101 lb 8 oz 101 lb 1 oz Assessment and Plan (1) Chest pain Current visit: Yes Status: Acute Qualifiers: Chest pain type: precordial pain Qualified Code(s): R07.2 - Precordial pain Category: Medical Code(s): R07.9 - Chest pain, unspecified (2) Anemia Current visit: Yes Status: Acute Qualifiers: Anemia type: unspecified type Qualified Code(s): D64.9 - Anemia, unspecified Category: Medical Code(s): D64.9 - Anemia, unspecified (3) Hypokalemia Current visit: Yes Status: Acute Category: Medical Code(s): E87.6 - Hypokalemia (4) Hypertension Current visit: Yes Status: Acute Category: Medical Code(s): I10 - Essential (primary) hypertension (5) COPD (chronic obstructive pulmonary disease) Current visit: Yes Status: Acute Category: Medical Code(s): J44.9 - Chronic obstructive pulmonary disease, unspecified (6) Tobacco use Current visit: Yes Status: Acute Category: Social Hx Code(s): Z72.0 - Tobacco use - Assessment and plan all Dx Assessment and Plan for all problems:: Saw patient, agree with above note. She is anxious to be discharged home, continue evaluation of symptoms with cardiac stress test today, if normal will likely get CT of chest.
[2018-05-27 07:00] LABS: Anion Gap 10.7 mEq/L (5-15); Calcium 8.3 mg/dL (8.5-10.1); Potassium 4.7 mmoL/L (3.5-5.1)
[2018-05-27 07:19] LABS: Basophils # 0.1 K/mm3 (0-0.2); Eosinophils # 0.1 K/mm3 (0.0-0.4); Eosinophils % 1.8 % (0.1-12.0); Hematocrit 30.3 % (37.0-47.0); Hemoglobin 8.6 g/dL (12.2-16.2); Lymphocytes # 1.6 K/mm3 (0.7-4.5); Lymphocytes % 22.7 K/mm3 (10-50); Mean Corpuscular HGB Conc 28.5 g/dL (31.8-35.4); Mean Corpuscular Hemoglobin 19.6 pg (27.0-31.2); Mean Corpuscular Volume 68.8 fl (81-99); Mean Platelet Volume 7.3 fl (7.4-10.4); Monocytes # 0.5 K/mm3 (0.1-1.0); Monocytes % 6.4 % (1.7-9.3); Neutrophils # 4.9 K/mm3 (1.8-7.8); Neutrophils % 67.9 % (37.0-80.0); Platelet Count 274 K/mm3 (142-424); Red Cell Distribution Width 17.4 % (11.5-17.5); White Blood Count 7.2 K/mm3 (4.8-10.8)
--- NOTE | 2018-05-27 08:19 | Progress Note ---
<Patricia Cedeno - Last Filed: 05/27/18 08:15> Internal Medicine - PN: Subj *Date: 05/27/18 *Time: 08:15 Interval history: Patient states she is feeling well this morning. She is anxious to go home. She denies any pain. She slept well until approximately 3 AM. She ate most of her breakfast this morning. Exam Vital signs and Labs for Last 24 Hours: Temp Pulse Resp BP Pulse Ox 97.8 F 61 18 138/74 93 L 05/27/18 07:52 05/27/18 07:52 05/27/18 07:52 05/27/18 07:52 05/27/18 07:52 Laboratory Results - last 24 hr 05/25/18 08:08: Iron 15 L, TIBC 340, Iron Saturation 4 L, Unsaturated IBC 325 05/27/18 06:15: WBC 7.2 D, RBC 4.40, Hgb 8.6 L, Hct 30.3 L, MCV 68.8 L, MCH 19.6 L, MCHC 28.5 L, RDW 17.4, Plt Count 274, MPV 7.3 L, Neut % (Auto) 67.9, Lymph % (Auto) 22.7, [place] % (Auto) 6.4, Eos % (Auto) 1.8, Baso % (Auto) 1.0, Neut # (Auto) 4.9, Lymph # (Auto) 1.6, [place] # (Auto) 0.5, Eos # (Auto) 0.1, Baso # (Auto) 0.1 05/27/18 06:15: Sodium 138, Potassium 4.7, Chloride 107, Carbon Dioxide 25, Anion Gap 10.7, BUN 19 H, Creatinine 0.66, Estimated Creat Clear 29, Estimated GFR 85, Est GFR ( Amer) 103, Glucose 95, Calcium 8.3 L I & O for Last 24 hours: Intake & Output 05/24/18 05/25/18 05/26/18 05/27/18 11:59 11:59 11:59 11:59 Intake Total 0 / 0 1104 / 1104 2309 / 2309 Output Total 200 / 200 300 / 300 800 / 800 Balance -200 / -200 804 / 804 1509 / 1509 Weight 101 lb 8 oz 101 lb 1 oz 102 lb Microbiology Reports for the Last 24 Hours: Microbiology 05/25/18 01:51 Blood Blood Culture - Preliminary NO GROWTH AFTER 48 HOURS 05/25/18 01:51 Blood Blood Culture - Preliminary NO GROWTH AFTER 48 HOURS Radiology Reports for the Last 24 Hours: Stress test 1. Normal ejection fraction of 78 %. 2. Incomplete perfusion abnormalities of the anterior wall towards the septum and at the apex on the stress images which becomes more normal on the delayed images consistent with areas of ischemia - Constitutional no acute distress - *Routine Respiratory Exam Present: decreased breath sounds, CTA bilaterally - *Routine Cardiovascular Exam Present: RRR - *Routine Abdominal Exam Present: soft, normoactive bowel sounds. Absent: tenderness - *Routine Extremities Exam Absent: edema Assessment and Plan (1) Chest pain Current visit: Yes Status: Acute Qualifiers: Chest pain type: precordial pain Qualified Code(s): R07.2 - Precordial pain Category: Medical Code(s): R07.9 - Chest pain, unspecified (2) Anemia Current visit: Yes Status: Acute Qualifiers: Anemia type: unspecified type Qualified Code(s): D64.9 - Anemia, unspecified Category: Medical Code(s): D64.9 - Anemia, unspecified (3) Hypokalemia Current visit: Yes Status: Acute Category: Medical Code(s): E87.6 - Hypokalemia (4) Hypertension Current visit: Yes Status: Acute Category: Medical Code(s): I10 - Essential (primary) hypertension (5) COPD (chronic obstructive pulmonary disease) Current visit: Yes Status: Acute Category: Medical Code(s): J44.9 - Chronic obstructive pulmonary disease, unspecified (6) Tobacco use Current visit: Yes Status: Acute Category: Social Hx Code(s): Z72.0 - Tobacco use - Assessment and plan all Dx Assessment and Plan for all problems:: The patient's Lexiscan myoview showed some ischemia in the anterior septum and apical areas with a normal LVEF. Cardiology discussed results with the patient and she wanted to try medical therapy first before considering a cardiac cath. Due to low BP, her lisinopril was discontinued and she was started on norvasc for anti-angina properties. They also recommended she take ASA 81mg and continue statin therapy. They felt she could be discharged and will need to f/u with them in the office. Will discuss disposition with Dr. Mayorga. <Brandan Mayorga - Last Filed: 05/27/18 08:30> Internal Medicine - PN: Subj *Date: 05/27/18 *Time: 08:29 Exam Vital signs and Labs for Last 24 Hours: Temp Pulse Resp BP Pulse Ox 97.8 F 61 18 138/74 93 L 05/27/18 07:52 05/27/18 07:52 05/27/18 07:52 05/27/18 07:52 05/27/18 07:52 Laboratory Results - last 24 hr 05/25/18 08:08: Iron 15 L, TIBC 340, Iron Saturation 4 L, Unsaturated IBC 325 05/27/18 06:15: WBC 7.2 D, RBC 4.40, Hgb 8.6 L, Hct 30.3 L, MCV 68.8 L, MCH 19.6 L, MCHC 28.5 L, RDW 17.4, Plt Count 274, MPV 7.3 L, Neut % (Auto) 67.9, Lymph % (Auto) 22.7, [place] % (Auto) 6.4, Eos % (Auto) 1.8, Baso % (Auto) 1.0, Neut # (Auto) 4.9, Lymph # (Auto) 1.6, [place] # (Auto) 0.5, Eos # (Auto) 0.1, Baso # (Auto) 0.1 05/27/18 06:15: Sodium 138, Potassium 4.7, Chloride 107, Carbon Dioxide 25, Anion Gap 10.7, BUN 19 H, Creatinine 0.66, Estimated Creat Clear 29, Estimated GFR 85, Est GFR ( Amer) 103, Glucose 95, Calcium 8.3 L I & O for Last 24 hours: Intake & Output 05/24/18 05/25/18 05/26/18 05/27/18 11:59 11:59 11:59 11:59 Intake Total 0 / 0 1104 / 1104 2309 / 2309 Output Total 200 / 200 300 / 300 800 / 800 Balance -200 / -200 804 / 804 1509 / 1509 Weight 101 lb 8 oz 101 lb 1 oz 102 lb Microbiology Reports for the Last 24 Hours: Microbiology 05/25/18 01:51 Blood Blood Culture - Preliminary NO GROWTH AFTER 48 HOURS 05/25/18 01:51 Blood Blood Culture - Preliminary NO GROWTH AFTER 48 HOURS Assessment and Plan (1) Chest pain Current visit: Yes Status: Acute Qualifiers: Chest pain type: precordial pain Qualified Code(s): R07.2 - Precordial pain Category: Medical Code(s): R07.9 - Chest pain, unspecified (2) Anemia Current visit: Yes Status: Acute Qualifiers: Anemia type: unspecified type Qualified Code(s): D64.9 - Anemia, unspecified Category: Medical Code(s): D64.9 - Anemia, unspecified (3) Hypokalemia Current visit: Yes Status: Acute Category: Medical Code(s): E87.6 - Hypokalemia (4) Hypertension Current visit: Yes Status: Acute Category: Medical Code(s): I10 - Essential (primary) hypertension (5) COPD (chronic obstructive pulmonary disease) Current visit: Yes Status: Acute Category: Medical Code(s): J44.9 - Chronic obstructive pulmonary disease, unspecified (6) Tobacco use Current visit: Yes Status: Acute Category: Social Hx Code(s): Z72.0 - Tobacco use - Assessment and plan all Dx Assessment and Plan for all problems:: Saw patient, OK for discharge today on Norvasc, NTG SL and iron, f/u in office next week for repeat CBC.
--- NOTE | 2018-05-27 10:08 | Discharge Summary ---
General - General Admission date:: 05/25/18 <Brandan Mayorga - 05/28/18 09:08> 05/25/18 <Patricia Cedeno - 05/27/18 10:08> Discharge date: 05/27/18 <WilianPatricia - 05/27/18 10:08> HPI HPI: Ms. Delarosa is an 88-year-old female with a history of hypertension and tobacco use disorder who presented to [facility] emergency room after experiencing anterior, sharp chest pain. Her breathing was as usual. She rates her chest pain at 10 out of 10. She denies any nausea. Chest pain started about 1 AM when she was playing a game on her telephone when she was unable to sleep. When pain did not resolve she called her son who brought her to the emergency room. She did take an aspirin at home. In the emergency room chest pain did improve. Cardiac workup was initiated and she was admitted for further evaluation and treatment with a cardiology consult. This a.m. patient is comfortable and denies shortness of breath. Se did not sleep during the night due to activities. To note: Patient had a recent humeral fracture. Continues with rehab. She does continue to smoke 1 pack per day. Although patient notes that she has had a lot of stress recently due to her son getting over the past weekend. She has had some difficulty with swallowing with some discomfort as well. <Patricia Cedeno - 05/27/18 10:08> Hospital Course Hospital Course: The patient was seen by cardiology and with her marked microcytic anemia, they recommended antianginal medications (bisoprolol) and a Lexiscan Myoview to assess for myocardial ischemia. She had an echocardiogram which showed a preserved left ventricular ejection fraction with at least moderate mitral regurgitation and severe TR. The patient did have another episode of CP while in the hospital and it lasted 7-8 minutes and was relieved with morphine. Her EKG showed some bradycardia, therefore her bisoprolol was discontinued and she was started on norvasc. The patient's Lexiscan myoview showed some ischemia in the anterior septum and apical areas with a normal LVEF. Cardiology discussed results with the patient and she wanted to try medical therapy first before considering a cardiac cath. They also recommended she take ASA 81mg and continue statin therapy. They felt she could be discharged and will need to f/u with them in the office. She was discharged home on norvasc, NTG SL and iron. She will f/u in the office of [facility] next week for a repeat CBC. <Patricia Cedeno - 05/27/18 10:08> Objective Vital signs: Temp Pulse Resp BP Pulse Ox 97.8 F 61 18 138/74 93 L 05/27/18 07:52 05/27/18 07:52 05/27/18 07:52 05/27/18 07:52 05/27/18 07:52 <Brandan Mayorga - 05/28/18 09:08> Temp Pulse Resp BP Pulse Ox 97.8 F 61 18 138/74 93 L 05/27/18 07:52 05/27/18 07:52 05/27/18 07:52 05/27/18 07:52 05/27/18 07:52 <Patricia Cedeno - 05/27/18 10:08> Narrative: - Constitutional no acute distress, thin <Nichol Delacruz - 05/25/18 09:25> Comments: Appears comfortable sitting up in bed watching television. - *Routine HEENT Exam Head: Present: normocephalic, atraumatic Eye: Present: PERRL. Absent: conjunctival icterus, scleral injection ENT: Present: mucous membranes moist, oropharynx clear - *Routine Neck Exam Present: supple. Absent: carotid bruit, lymphadenopathy, thyromegaly - *Routine Respiratory Exam Comments: Fibrotic crackles bilaterally posteriorly. Decreased breath sounds on the left - *Routine Cardiovascular Exam Present: RRR Comments: Monitor showing sinus rhythm - *Routine Abdominal Exam Present: soft, normoactive bowel sounds. Absent: tenderness, distended, guarding, firm - *Routine Extremities Exam Present: edema. Absent: calf tenderness Comments: Edema of bilateral feet. - *Routine Skin Exam Present: dry - *Routine Neurological Exam Present: alert, oriented X3 <Patricia Cedeno - 05/27/18 10:08> Results Labs on day of discharge: Preliminary micro results at discharge 05/25/18 01:51 Blood Culture - Preliminary Blood NO GROWTH AFTER 48 HOURS 05/25/18 01:51 Blood Culture - Preliminary Blood NO GROWTH AFTER 48 HOURS <Brandan Mayorga - 05/28/18 09:08> Labs from last 24 hours 05/27/18 05/27/18 05/25/18 06:15 06:15 08:08 WBC 7.2 D RBC 4.40 Hgb 8.6 L Hct 30.3 L MCV 68.8 L MCH 19.6 L MCHC 28.5 L RDW 17.4 Plt Count 274 MPV 7.3 L Neut % (Auto) 67.9 Lymph % (Auto) 22.7 [place] % (Auto) 6.4 Eos % (Auto) 1.8 Baso % (Auto) 1.0 Neut # (Auto) 4.9 Lymph # (Auto) 1.6 [place] # (Auto) 0.5 Eos # (Auto) 0.1 Baso # (Auto) 0.1 Sodium 138 Potassium 4.7 Chloride 107 Carbon Dioxide 25 Anion Gap 10.7 BUN 19 H Creatinine 0.66 Estimated Creat Clear 29 Estimated GFR 85 Est GFR ( Amer) 103 Glucose 95 Calcium 8.3 L Iron 15 L TIBC 340 Iron Saturation 4 L Unsaturated IBC 325 Preliminary micro results at discharge 05/25/18 01:51 Blood Culture - Preliminary Blood NO GROWTH AFTER 48 HOURS 05/25/18 01:51 Blood Culture - Preliminary Blood NO GROWTH AFTER 48 HOURS <Patricia Cedeno 05/27/18 10:08> DS: Diagnosis - Discharge Diagnosis (1) Chest pain Status: Acute (2) Anemia Status: Acute (3) Hypokalemia Status: Acute (4) Hypertension Status: Acute (5) COPD (chronic obstructive pulmonary disease) Status: Acute (6) Tobacco use Status: Acute (7) Abnormal cardiovascular stress test Status: Acute <Brandan Mayorga - 05/28/18 09:08> (1) Chest pain Status: Acute (2) Anemia Status: Acute (3) Hypokalemia Status: Acute (4) Hypertension Status: Acute (5) COPD (chronic obstructive pulmonary disease) Status: Acute (6) Tobacco use Status: Acute <Patricia Cedeno 05/27/18 10:01> Discharge Plan - Patient Discharge Instructions ACTIVITY: Continue current activity <Patricia Cedeno 05/27/18 10:08> DIET: continue same diet <Patricia Cedeno 05/27/18 10:08> Patient Instructions: DI for Angina <Brandan Mayorga - 05/28/18 09:08> Forms: <Brandan Mayorga - 05/28/18 09:08> - Follow up Plan Follow up with: Brandan Mayorga MD [Primary Care Provider] - 06/01/18 Nayan Yeh MD [Staff Physician] - 1 week <Brandan Mayorga - 05/28/18 09: 08> Disposition: Home, Self-Care <Brandan Mayorga - 05/28/18 09:08> Home Medications: Home Medications Medication Instructions Recorded Confirmed Type cholecalciferol (vitamin D3) 1,000 1,000 unit PO DAILY 02/04/18 05/25/18 History unit capsule pravastatin 40 mg tablet 40 mg PO HS 90 Days #90 02/04/18 05/25/18 History vitamins A,C,N-[id number]-atzkzn 14,320 1 cap PO DAILY 03/02/18 05/25/18 History unit-226 mg-200 unit capsule Alendronate Sodium 70 mg PO WEEKLY 03/23/18 05/25/18 History ondansetron 4 mg disintegrating 4 mg PO TID PRN 03/26/18 05/25/18 History tablet <Brandan Mayorga - 05/28/18 09:08> Prescriptions/Medication Reconciliation: New Amlodipine Besylate [Norvasc 5mg tablet] 5 mg PO DAILY #30 tab Aspirin [Aspir 81] 81 mg PO DAILY #30 tablet. Nitroglycerin 0.4 mg SL Q5M PRN #20 tab.subl PRN Reason: Chest Pain Ferrous Sulfate 325 mg PO TID #90 tab Continue pravastatin 40 mg tablet 40 mg PO HS 90 Days #90 cholecalciferol (vitamin D3) 1,000 unit capsule 1,000 unit PO DAILY vitamins A,C,[id number]-klaj-[id number] 14,320 unit-226 mg-200 unit capsule 1 cap PO DAILY ondansetron 4 mg disintegrating tablet 4 mg PO TID PRN PRN Reason: Nausea Alendronate Sodium 70 mg PO WEEKLY Discontinued lisinopril 20 mg-hydrochlorothiazide 12.5 mg tablet 1 tab PO DAILY 90 Days # 90 lisinopril 10 mg tablet 10 mg PO DAILY 90 Days #90 Aspirin [Aspirin 325mg Tab] 325 mg PO DAILY <Brandan Mayorga - 09:08>
== END 2018-05-27 10:17 | disposition home or self-care (01) ==
LOC: ER 01:44 → 2ND 01:44
PROVIDERS: ADMIT Emergency Medicine; ATTEND Family Medicine